=== PATIENT | male | born 1935 | race Caucasian/White ===

== ENCOUNTER 2016-12-20 12:00 | Observation (INO) | payer BC ==
--- NOTE | ~2016-12-20 | HP ---
History And Physical [place] [id number] [facility] [place]. [address] NAME: HELEN LITTLE : 35 STATUS : ADM David PAT#: [id number] AGE: 81 ADM/REG DATE : 12/20/16 MR#: [id number] REPORT SERV DATE: 12/21/16 DICTATED BY: RODDY CHU DATE: 12/20/16 REPORT STATUS : Draft TRANSCRIBED BY: MODL DATE: 12/20/16 DATE OF ADMISSION: 12/20/2016 REASON FOR ADMISSION: Chest pain. PRESENT ILLNESS: Mr. Little is an 81-year-old male with dementia, atrial fibrillation, and COPD, who was sent here from the primary care provider's office for dyspnea and ataxia. In the triage, the chief complaint had been abnormal EKG, although it was not clear what that was referring to as the patient's EKGs was in fact paced. The patient had the pacemaker interrogated in the emergency room which was satisfactory, but I was asked to admit based on the primary care provider's expectations. However, that was not really the chief issue from the patient's 's concern, what she was most concerned about was he has intermittent complaints of chest pain. The patient, however, gives a very poor history. Denies any chest pain at the present time. She feels like his shortness of breath and cough are the same as baseline, although there has been increased somnolence lately with diminished activity, diminished p.o. intake, and trouble walking where he holds on to furniture which he had not used to do. Shortness of breath and cough for similar to baseline. Unable to really get a full review of systems. The patient has no chest or abdominal pain, headaches, or pain anywhere else. No nausea or vomiting. No bowel changes. No weight changes. No fevers are noted. There have been no falls. REVIEW OF SYSTEMS: The remaining review of systems are unable to be assessed. PAST MEDICAL HISTORY: As mentioned above, history of the lower GI bleed, last hospitalized this past winter. He has iron deficiency anemia as well. MEDICATIONS: Include Seroquel, melatonin, multivitamin, aspirin, Aricept, Maxzide, Anoro, Zocor, and Celexa. ALLERGIES: NO ALLERGIES. FAMILY HISTORY: Positive for stroke and coronary disease. SOCIAL HISTORY: The patient used to be a heavy smoker and heavy drinker, has quit both. He is DNR. PHYSICAL EXAMINATION: VITAL SIGNS: The patient's blood pressure was 139/68, pulse of 74, respirations of 16, and afebrile. GENERAL: Awake and alert and oriented x2 and in no apparent distress. HEENT: Pupils were equal and reactive to light. Extraocular movements are intact. No cranial nerve deficits. Moist mucous membranes. Normal oropharynx. He had normal visual zapata. NECK: Revealed no jugular venous distention, carotid bruits, lymphadenopathy, or goiter. CARDIAC: Regular rate and rhythm. No murmurs, gallops, or rubs identified. History And Physical [address] [address] NAME: HELEN LITTLE : 35 STATUS : ADM David PAT#: [id number] AGE: 81 ADM/REG DATE : 12/20/16 MR#: [id number] REPORT SERV DATE: 12/21/16 DICTATED BY: RODDY CHU DATE: 12/20/16 REPORT STATUS : Draft TRANSCRIBED BY: CAROLINA DATE: 12/20/16 LUNGS: Clear to auscultation bilaterally. Good excursion. There was no precordial tenderness. ABDOMEN: Nondistended and nontender. Bowel sounds normoactive. EXTREMITIES: No cyanosis, clubbing, or edema. Good pulses and capillary refill. No Homans' sign nor cords. NEUROLOGIC: He had a difficult time cooperating but had 5/5 strength in all four extremities. Normal sensory function x4. Normal ukgjax-xd-gumw test. SKIN: Warm and dry. PSYCHIATRIC: He was appropriate. LABORATORY EVALUATION: Sodium 142, potassium 3.9, chloride 102, bicarb 33, BUN 30, creatinine 1.04, and glucose 72. Troponin I negative. White count 7000. Hemoglobin and hematocrit 13/35. Platelets of 158. Urinalysis negative. EKG, reviewed by me, was paced. Chest x-ray, reviewed by me, showed no apparent disease. ASSESSMENT AND PLAN: 1. Chest pain. The symptoms are vague, I am unable to really get a pretest probability. The EKG changes that are reported are irrelevant as they had normal-paced rhythm. We will go ahead and at the family's request go ahead and do a stress evaluation, although the is unsure whether she would want a coronary catheterization afterwards. He would be a candidate for medical therapy if he does in fact have ischemic coronary disease. She would not wish for a coronary bypass graft, however. 2. Dyspnea, possibly related to #1, although likely this is his baseline chronic obstructive pulmonary disease from his chronic tobacco habit. Continue his metered-dose inhaler and follow for now. 3. Ataxia, did not appear to be an acute neurological event. 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 Discussing with the , neither she nor I feel like inpatient physical therapy would be in his best interest. 4. Dementia, we are concerned about the possibility of delirium here in the hospital, and we will try to optimize his care and discharge him as soon as possible. EFFIE/CAROLINA Roddy Chu M.D. / [id number] CC: Malcolm Dumont M.D.
--- NOTE | ~2016-12-20 | DS ---
Discharge Summary [place] [address] [place]. [address] NAME: HELEN JACOBSON : 35 STATUS : DIS David PAT#: [id number] AGE: 81 ADM/REG DATE : 12/20/16 MR#: [id number] REPORT SERV DATE: 12/22/16 DICTATED BY: RODDY CHU DATE: 12/21/16 REPORT STATUS : Draft TRANSCRIBED BY: MODL DATE: 12/21/16 ADMISSION DATE: 12/20/2016 DISCHARGE DATE: 12/21/2016 PRINCIPAL DIAGNOSIS: Chest pain, unspecified. 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 HISTORY OF PRESENT ILLNESS: Please see my dictation on 12/20/2016. HOSPITAL COURSE: Admitted with a concern about shortness of breath, but no evidence shortness of breath per the patient's family. There was a concern about ataxia, which had been also long-standing, although somewhat worse than baseline and some chest pain, which did in fact appear to be new, although the patient in his dementia denied it for me. The patient was admitted. EKG was unchanged. The pacemaker was interrogated in the emergency department and found to be satisfactory. Troponins were negative. Stress test the following morning was negative and he was released. Recommending outpatient physical therapy. Continue other home medications. Follow up Dr. Edmund Brennan on a p.r.n. basis. EFFIE/CAROLINA Roddy Chu M.D. / [id number] CC: Malcolm Dumont M.D.
[~2016-12-20 12:00] MED LIST: ALBUTEROL0.63 MG/3 INH; ARICEPT5 PO; ASAB PO; ATV.5 PO; CELEXA10 PO; CENTRUM PO; ELIQUIS 5 MG TAB5 MG PO; FERROUS SULF325 M1 PO; HALF81 PO; HYDROCHLOROT25 MG PO; MAX25 PO; MAXZIDE PO; MCZ25 PO; MELATONIN OTC PO; MOBIC7.5 PO; PROAIR HFA INH; PROTONIX PO; SEROQUEL25 PO; TOPXL25 PO; ZOCOR20 PO; [UNRECOGNIZED DRUG - CODE] TOP; [UNRECOGNIZED DRUG - OTHER] TOP
[2016-12-20 12:26] LABS: BASOPHILS 0.3 %; BASOPHILS ABSOLUTE 0.02 10/3/uL (0.0-0.16); EOSINOPHILS 4.1 %; EOSINOPHILS ABSOLUTE 0.28 10/3/uL (0.0-0.53); IMMATURE GRANULOCYTES 0.1 %; IMMATURE GRANULOCYTES ABSOLUTE 0.01 10/3/uL (0.0-0.11); LYMPHOCYTES 17.5 %; MEAN CORPUS HGB CONC 32.3 g/dL (32.0-36.0); MEAN PLATELET VOLUME 10.4 fL (9.2-13.0); MONOCYTES 10.5 %; MONOCYTES ABSOLUTE 0.72 10/3/uL (0.21-1.20); NEUTROPHILS 67.5 %; NEUTROPHILS ABSOLUTE 4.62 10/3/uL (2.02-8.40); PLATELET COUNT 158 10/3/uL (150-400); RBC DISTRIBUTION WIDTH 20.3 % (12.0-16.0); WHITE BLOOD CELLS 6.9 10/3/uL (4.5-10.5)
[2016-12-20 12:27] LABS: ER CBC TAT 0 Hrs 05 Mins; HEMOGLOBIN 12.6 g/dL (13.6-17.8); MANUAL DIFF NO %; MEAN CORPUSCULAR HEMOGLOB 29.3 pg (26.0-34.0); MEAN CORPUSCULAR VOLUME 90.7 fL (80-100)
[2016-12-20 12:36] LABS: INTERNATIONAL NORMAL RATI 1.1 UNITS (-); PARTIAL THROMBO TIME 30.6 SEC (22.5-37.2); PROTIME (NOT ORD) 14.4 SEC (12.0-14.5)
[2016-12-20 12:48] LABS: ALBUMIN 3.3 G/DL (3.5-5.0); ALKALINE PHOSPHATASE 66 U/L (45-117); BUN (BLOOD UREA NITROGEN) 30 MG/DL (6-23); CALCIUM, SERUM 8.9 MG/DL (8.5-10.4); CHEST PAIN PROFILE TAT 0 Hrs 27 Mins; CHLORIDE, SERUM 102 MMOL/L (96-112); CO2 (CARBON DIOXIDE) 33 MMOL/L (24-34); CREATININE 1.41 MG/DL (0.70-1.30); GFR AFRICAN AMERICAN 54 ML/MIN (>=60); GFR NON AFRICAN AMERICAN 46 ML/MIN (>=60); POTASSIUM, SERUM 3.9 MMOL/L (3.5-5.3); SGOT(AST) 17 U/L (5-40); SGPT(ALT) 17 U/L (5-65); SODIUM, SERUM 142 MMOL/L (135-148); T4 (THYROXINE) TOTAL 6.7 MCG/DL (4.5-12.0); TOTAL BILIRUBIN 0.2 MG/DL (0-1.2); TOTAL PROTEIN 7.4 G/DL (6.0-8.5); TROPONIN I <0.02 NG/ML (<0.05)
[2016-12-20 12:49] LABS: DIRECT BILIRUBIN < 0.1 MG/DL (0.0-0.4); GLUCOSE, SERUM 72 MG/DL (60-99); INDIRECT BILIRUBIN(NOT ORDER) 0.1 MG/DL (0.1-0.9)
[2016-12-20 14:37] LABS: ASCORBIC ACID (UR NOT ORDER) 40 (NEG); BILIRUBIN, URINE NEGATIVE (NEG); ER URINALYSIS TAT 0 Hrs 12 Mins; KETONE, URINE NEGATIVE (NEG); LEUKOCYTE ESTERASE(NOT OR NEG (NEG); NITRITE (URINE) NEG (NEG); WBC (NOT ORDERED) (RFLEX) 1 (0-5)
[2016-12-20] MEDS ORDERED: MELATONIN10 M2 PO (16:52)
[2016-12-20] MEDS ORDERED: THERGRANM PO (16:52)
[2016-12-20] MEDS ORDERED: ANOROELLIPTA INH (16:53)
[2016-12-20] MEDS ORDERED: CELEXA20 PO (16:54)
[2016-12-21] MEDS ORDERED: B1100 PO (13:34)
[2016-12-21] MEDS ORDERED: MAGOX4 PO (13:35)
== END 2016-12-21 14:01 | disposition home or self-care (01) ==
LOC: ER 12:00 → CDU1 15:52 → CDU2 18:01
PROVIDERS: Emergency Medicine
DX: R07.9 Chest pain, unspecified (principal); J44.9 Chronic obstructive pulmonary disease, unspecified; F03.90 Unspecified dementia, unspecified severity, without behavioral disturbance, psychotic disturbance, mood disturbance, and anxiety; E78.00 Pure hypercholesterolemia, unspecified; R27.0 Ataxia, unspecified; Z79.82 Long term (current) use of aspirin; Z79.899 Other long term (current) drug therapy; Z82.3 Family history of stroke; Z82.49 Family history of ischemic heart disease and other diseases of the circulatory system; Z90.49 Acquired absence of other specified parts of digestive tract; Z95.0 Presence of cardiac pacemaker
CPT/HCPCS: 70450; 71010; 78452; 80048; 80076; 81001; 83735; 83880; 84436; 84443; 84481; 84484; 85025; 85610; 85730; 93005; 93017; 96372; 99285; A9270-GY; A9502; G0378; J0153

== ENCOUNTER 2016-12-28 05:57 | Day surgery (SDC) | payer BC ==
--- NOTE | ~2016-12-28 | EGD ---
EGD REPORT [facility] [address] [place]. [address] NAME: HELEN LITTLE : 35 STATUS : REG [facility]#: [id number] AGE: 81 ADM/REG DATE : 12/28/16 MR#: [id number] REPORT SERV DATE: 12/28/16 DICTATED BY: BOY MILES DATE: 12/28/16 REPORT STATUS : Draft TRANSCRIBED BY: [facility] DATE: 12/28/16 [facility] Patient Name: Helen Little Date of : 1935 Attending MD: ROMI MILES MD Procedure Date No Time: 12/28/2016 Procedure: Small bowel enteroscopy Indications: Recurrent bleeding in the small bowel Referring MD: SHAE COHEN Medicines: See the Anesthesia note for documentation of the administered medications Complications: No immediate complications. Estimated blood loss: None. Procedure: Pre-Anesthesia Assessment: - ASA Grade Assessment: III - A patient with severe systemic disease. After obtaining informed consent, the endoscope was passed under direct vision. Throughout the procedure, the patient's blood pressure, pulse, and oxygen saturations were monitored continuously. The PCF [id number] was introduced through the mouth and advanced to the jejunum, to the 180 cm kandace (from the incisors). The small bowel enteroscopy was accomplished without difficulty. The patient tolerated the procedure well. Findings: There was no evidence of significant pathology at 80 cm (distal to the pylorus). No AVM or blood or any pathology seen There was no evidence of significant pathology in the entire examined duodenum. The esophagus was normal. The stomach was normal. Impression: - The examined portion of the jejunum was normal. - No AVM or blood or any pathology seen - Normal examined duodenum. - Normal esophagus. - Normal stomach. Recommendation: - Discharge patient to home. - Continue present medications. Procedure Code(s): --- Professional --- 12654, Small intestinal endoscopy, enteroscopy beyond second portion of duodenum, not including ileum; EGD REPORT [facility] [address] [place]. [address] NAME: HELEN LITTLE : 35 STATUS : [place] [facility] PAT#: [id number] AGE: 81 ADM/REG DATE : 12/28/16 MR#: [id number] REPORT SERV DATE: 12/28/16 DICTATED BY: BOY MILES DATE: 12/28/16 REPORT STATUS : Draft TRANSCRIBED BY: [employer] DATE: 12/28/16 diagnostic, with or without collection of specimen(s) by brushing or washing (separate procedure) Diagnosis Code(s): --- Professional --- K92.2, Gastrointestinal hemorrhage, unspecified CPT copyright 2013 [employer]. All rights reserved. The codes documented in this report are preliminary and upon protein purification scientist review may be revised to meet current compliance requirements. ROMI MILES MD 12/28/2016 7:47 AM This report has been signed electronically. Number of Addenda: 0 Note Initiated On: 12/28/2016 7:24 AM Scope Withdrawal Time 0 hours 0 minutes 0 seconds [address] [facility] [place] [address]
[~2016-12-28 05:57] MED LIST changes: +ANOROELLIPTA INH; +B1100 PO; +CELEXA20 PO; +MAGOX4 PO; +MELATONIN10 M2 PO; +THERGRANM PO
== END 2016-12-28 23:59 | disposition home or self-care (01) ==
LOC: DMU 05:57
PROVIDERS: Internal Medicine Gastroenterology
PROC: 0DJ08ZZ Inspection of Upper Intestinal Tract, Via Natural or Artificial Opening Endoscopic (ICD-10-PCS; principal; 2016-12-28 07:30)
DX: K92.2 Gastrointestinal hemorrhage, unspecified (principal); F03.90 Unspecified dementia, unspecified severity, without behavioral disturbance, psychotic disturbance, mood disturbance, and anxiety; H91.90 Unspecified hearing loss, unspecified ear; J44.9 Chronic obstructive pulmonary disease, unspecified; I10 Essential (primary) hypertension; E78.00 Pure hypercholesterolemia, unspecified; I49.9 Cardiac arrhythmia, unspecified; F41.9 Anxiety disorder, unspecified; F32.9 Major depressive disorder, single episode, unspecified; Z79.82 Long term (current) use of aspirin; Z79.899 Other long term (current) drug therapy; Z95.0 Presence of cardiac pacemaker; Z87.891 Personal history of nicotine dependence; Z90.49 Acquired absence of other specified parts of digestive tract

== ENCOUNTER 2017-02-13 12:37 | Observation (INO) | payer BC ==
--- NOTE | ~2017-02-13 | DS ---
Discharge Summary [place] [address] [place]. [address] NAME: HELEN JACOBSON : 35 STATUS : DIS David PAT#: [id number] AGE: 81 ADM/REG DATE : 02/13/17 MR#: [id number] REPORT SERV DATE: 02/15/17 DICTATED BY: ROBERT CORONA DATE: 02/14/17 REPORT STATUS : Draft TRANSCRIBED BY: KAITLYNNL DATE: 02/14/17 ADMISSION DATE: 02/13/2017 DISCHARGE DATE: 02/14/2017 DISCHARGE DIAGNOSES: 1. Advanced dementia with acute agitation. 2. Atrial fibrillation. 3. Chronic obstructive pulmonary disease. 4. Hypertension. 5. Heart block. 6. History of GI bleed. CONSULTANTS: None. PROCEDURES: None. HOSPITAL COURSE: This is an 81-year-old gentleman with underlying advanced dementia who was brought to the hospital for an episode of agitation. For details, please refer to my own H and P. In summary, the patient was admitted, and although he required a dose of Geodon down in the ER, the patient did not require any further doses of Geodon. The patient did not exhibit any agitation or combative behavior throughout the entire hospital stay. The patient was already on Seroquel 25 mg p.o. at bedtime which was increased to 25 in the morning and 50 in the evening. The patient otherwise did not have any ongoing active medical issues. The patient's family was given thorough counseling and the family was agreeable to taking the patient back home where they already have two sitters on daily basis. The patient is now being discharged back home with close outpatient followup plans. DISPOSITION: Home. MEDICATIONS: The only medication change is increasing Seroquel from 25 mg p.o. at bedtime to 25 in the morning and 50 in the evening. FOLLOWUP: Please follow up with PCP in the next one to two weeks. A total of 25 minutes spent in coordinating this patient's discharge today. DICTATED BY: Robert Corona MD Indigo/CAROLINA Robert Corona MD Discharge Summary [facility] [address] [place]. [address] NAME: HELEN JACOBSON : 35 STATUS : DIS David PAT#: [id number] AGE: 81 ADM/REG DATE : 02/13/17 MR#: [id number] REPORT SERV DATE: 02/15/17 DICTATED BY: ROBERT CORONA DATE: 02/14/17 REPORT STATUS : Draft TRANSCRIBED BY: CAROLINA DATE: 02/14/17 / [id number] CC: MD Edmund Lewis M.D.
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
[2017-02-13 12:03] LABS: BASOPHILS 0.1 %; BASOPHILS ABSOLUTE 0.01 10/3/uL (0.0-0.16); EOSINOPHILS 0.8 %; EOSINOPHILS ABSOLUTE 0.06 10/3/uL (0.0-0.53); ER CBC TAT 0 Hrs 11 Mins; IMMATURE GRANULOCYTES 0.1 %; IMMATURE GRANULOCYTES ABSOLUTE 0.01 10/3/uL (0.0-0.11); LYMPHOCYTES 13.6 %; LYMPHOCYTES ABSOLUTE 0.97 10/3/uL (0.67-4.30); MEAN CORPUSCULAR HEMOGLOB 30.7 pg (26.0-34.0); MEAN CORPUSCULAR VOLUME 89.9 fL (80-100); MEAN PLATELET VOLUME 10.6 fL (9.2-13.0); MONOCYTES 8.2 %; MONOCYTES ABSOLUTE 0.58 10/3/uL (0.21-1.20); NEUTROPHILS 77.2 %; NEUTROPHILS ABSOLUTE 5.48 10/3/uL (2.02-8.40); PLATELET COUNT 166 10/3/uL (150-400); RED CELL COUNT 5.05 10/6/uL (4.7-6.1); WHITE BLOOD CELLS 7.1 10/3/uL (4.5-10.5)
[2017-02-13 12:05] LABS: HEMATOCRIT 45.4 % (40.0-51.0); HEMOGLOBIN 15.5 g/dL (13.6-17.8); MANUAL DIFF NO %; MEAN CORPUS HGB CONC 34.1 g/dL (32.0-36.0)
[2017-02-13 12:13] LABS: ASCORBIC ACID (UR NOT ORDER) NEG (NEG); BILIRUBIN, URINE NEGATIVE (NEG); ER URINALYSIS TAT 0 Hrs 21 Mins; KETONE, URINE NEGATIVE (NEG); LEUKOCYTE ESTERASE(NOT OR NEG (NEG); NITRITE (URINE) NEG (NEG); WBC (NOT ORDERED) (RFLEX) 1 (0-5)
[2017-02-13 12:20] LABS: A/G RATIO 0.8 (0.7-1.9); ACETAMINOPHEN LEVEL (TYLENOL) < 2.0 MCG/ML (10.0-20.0); ALBUMIN 3.6 G/DL (3.5-5.0); ALCOHOL < 10 MG/DL (0); ALKALINE PHOSPHATASE 80 U/L (45-117); BUN (BLOOD UREA NITROGEN) 27 MG/DL (6-23); CALCIUM, SERUM 9.3 MG/DL (8.5-10.4); CHLORIDE, SERUM 104 MMOL/L (96-112); CO2 (CARBON DIOXIDE) 28 MMOL/L (24-34); CREATININE 1.42 MG/DL (0.70-1.30); GFR AFRICAN AMERICAN 53 ML/MIN (>=60); GFR NON AFRICAN AMERICAN 46 ML/MIN (>=60); GLOBULIN 4.6 G/DL (2.5-4.1); GLUCOSE, SERUM 92 MG/DL (60-99); SALICYLATE < 1.7 MG/DL (-); SGOT(AST) 23 U/L (5-40); SGPT(ALT) 20 U/L (5-65); SODIUM, SERUM 138 MMOL/L (135-148); TOTAL BILIRUBIN 0.5 MG/DL (0-1.2); TOTAL PROTEIN 8.2 G/DL (6.0-8.5); TROPONIN I 0.02 NG/ML (<0.05)
[2017-02-13 12:21] LABS: INTERNATIONAL NORMAL RATI 1.2 UNITS (-); PARTIAL THROMBO TIME 29.2 SEC (22.5-37.2); PROTIME (NOT ORD) 14.6 SEC (12.0-14.5)
[2017-02-13 12:30] LABS: AMPHETAMINES (NOT ORD) NEG (NEG); BARBITURATES (NOT ORDERED NEG (NEG); BENZODIAZEPINES (NOT ORD) NEG (NEG); CANNABINOIDS (THC) NEG (NEG); COCAINE (NOT ORDERED) NEG (NEG); OPIATES NEG (NEG); PHENCYCLIDINE(PCP) NEG (NEG); TRICYCLICS NEG (NEG)
[2017-02-13] MEDS ORDERED: ALBUTEROL0.083 % INH (13:35)
[2017-02-14 04:35] LABS: BASOPHILS 0.3 %; BASOPHILS ABSOLUTE 0.02 10/3/uL (0.0-0.16); EOSINOPHILS 1.9 %; EOSINOPHILS ABSOLUTE 0.12 10/3/uL (0.0-0.53); HEMATOCRIT 43.2 % (40.0-51.0); HEMOGLOBIN 14.6 g/dL (13.6-17.8); IMMATURE GRANULOCYTES 0.2 %; IMMATURE GRANULOCYTES ABSOLUTE 0.01 10/3/uL (0.0-0.11); LYMPHOCYTES 22.5 %; LYMPHOCYTES ABSOLUTE 1.43 10/3/uL (0.67-4.30); MANUAL DIFF NO %; MEAN CORPUS HGB CONC 33.8 g/dL (32.0-36.0); MEAN CORPUSCULAR HEMOGLOB 30.7 pg (26.0-34.0); MEAN CORPUSCULAR VOLUME 90.8 fL (80-100); MEAN PLATELET VOLUME 10.2 fL (9.2-13.0); MONOCYTES 9.7 %; MONOCYTES ABSOLUTE 0.62 10/3/uL (0.21-1.20); NEUTROPHILS 65.4 %; NEUTROPHILS ABSOLUTE 4.16 10/3/uL (2.02-8.40); PLATELET COUNT 147 10/3/uL (150-400); RBC DISTRIBUTION WIDTH 15.1 % (12.0-16.0); RED CELL COUNT 4.76 10/6/uL (4.7-6.1); WHITE BLOOD CELLS 6.4 10/3/uL (4.5-10.5)
[2017-02-14 04:51] LABS: BUN (BLOOD UREA NITROGEN) 32 MG/DL (6-23); CALCIUM, SERUM 9.2 MG/DL (8.5-10.4); CHLORIDE, SERUM 104 MMOL/L (96-112); CO2 (CARBON DIOXIDE) 30 MMOL/L (24-34); CREATININE 1.62 MG/DL (0.70-1.30); GFR AFRICAN AMERICAN 45 ML/MIN (>=60); GFR NON AFRICAN AMERICAN 39 ML/MIN (>=60); GLUCOSE, SERUM 92 MG/DL (60-99); POTASSIUM, SERUM 3.4 MMOL/L (3.5-5.3); SODIUM, SERUM 138 MMOL/L (135-148)
[2017-02-14] MEDS ORDERED: SEROQUEL50 MG PO (13:01)
== END 2017-02-14 17:30 | disposition home or self-care (01) ==
LOC: ER 12:37 → CDU1 15:58 → 6NO 16:49
PROVIDERS: Internal Medicine; Physician Assistant
DX: R45.1 Restlessness and agitation (principal); F03.90 Unspecified dementia, unspecified severity, without behavioral disturbance, psychotic disturbance, mood disturbance, and anxiety; I48.91 Unspecified atrial fibrillation; J44.9 Chronic obstructive pulmonary disease, unspecified; I10 Essential (primary) hypertension; I45.9 Conduction disorder, unspecified; Z87.891 Personal history of nicotine dependence; Z87.19 Personal history of other diseases of the digestive system; Z90.49 Acquired absence of other specified parts of digestive tract; Z95.0 Presence of cardiac pacemaker; Z98.890 Other specified postprocedural states; Z79.899 Other long term (current) drug therapy
CPT/HCPCS: 70450; 71010; 80048; 80053; 80305; 80307; 81001; 82140; 82607; 83690; 84443; 84484; 85025; 85610; 85730; 86592; 87040; 93005; 96372; 99285; A9270-GY; G0378; J3486